=== PATIENT | female | born 1990 | race Caucasian/White ===

== ENCOUNTER 2017-08-05 16:53 | Emergency (ER) | payer OTHER ==
[~2017-08-05] VITALS: Ht 162.6 cm; Wt 70.3 kg
[2017-08-05 18:51] LABS: Influenza A Positive (NEGATIVE); Influenza B Negative (NEGATIVE)
[2017-08-05] MEDS ORDERED: Tamiflu75 MG PO (19:01)
== END 2017-08-05 19:06 | disposition home or self-care (01) ==
LOC: ER 16:53
PROVIDERS: Physician Assistant
DX: J10.1 Influenza due to other identified influenza virus with other respiratory manifestations (principal)
CPT/HCPCS: 87081; 87430; 87804; 99283

== ENCOUNTER 2017-09-18 10:09 | Emergency (ER) | payer OTHER ==
[~2017-09-18] VITALS: Ht 162.6 cm; Wt 70.3 kg
[~2017-09-18 10:09] MED LIST: Tamiflu75 MG PO
[2017-09-18] MEDS ORDERED: Veetids 500500 MG PO (10:54)
== END 2017-09-18 11:03 | disposition home or self-care (01) ==
LOC: ER 10:09
DX: J02.0 Streptococcal pharyngitis (principal); Z87.891 Personal history of nicotine dependence
CPT/HCPCS: 87430; 99283; J1100

== ENCOUNTER → 2017-12-05 | Outpatient (CLI) | payer OTHER ==
[~2017-12-05] MED LIST changes: +Veetids 500500 MG PO
[2017-12-05 15:39] LABS: Source, Urine Clean Catch
[2017-12-05 18:03] LABS: BASOPHILS ABSOLUTE AUTO 0.02 K/mm3 (0.00-0.23); BASOPHILS PERCENT AUTO 0 % (0-2); EOSINOPHILS ABSOLUTE AUTO 0.12 K/mm3 (0.00-0.68); EOSINOPHILS PERCENT AUTO 2 % (0-6); Hematocrit 39.9 % (33.0-51.0); Hemoglobin 13.6 g/dL (11.5-16.0); IMMATURE GRAN ABSOLUTE AUTO 0.02 K/mm3 (0.00-0.10); IMMATURE GRAN PERCENT AUTO 0 % (0-1); LYMPHOCYTES PERCENT AUTO 32 % (21-46); MONOCYTES ABSOLUTE AUTO 0.87 K/mm3 (0.16-1.47); MONOCYTES PERCENT AUTO 11 % (4-13); Mean Corpuscular HGB 30.3 pg (26.0-34.0); Mean Corpuscular HGB Conc 34.1 g/dL (31.5-36.5); Mean Corpuscular Volume 89 fL (80-100); Mean Platelet Volume 10.4 fL (9.1-12.4); NEUTROPHILS ABSOLUTE AUTO 4.48 K/mm3 (1.96-9.15); NEUTROPHILS PERCENT AUTO 55 % (41-73); Platelet Count 250 K/mm3 (150-400); RDW Coefficient Variation 12.2 % (11.7-14.2); Red Blood Cell Count 4.49 M/mm3 (3.80-5.20); White Blood Cell Count 8.11 K/mm3 (4.00-11.30)
[2017-12-05 18:08] LABS: Appearance, Urine Clear (Clear); Bilirubin, Urine Neg (Neg); Blood, Urine Neg (Neg); Color, Urine Yellow (P-Yellow); Glucose Qualitative, Urine Neg (Neg); Ketones, Urine 1+ (Neg); Leukocyte Esterase, Urine Neg (Neg); Nitrite, Urine Neg (Neg); Protein, Urine Neg (Neg); Urobilinogen, Urine NORM (Normal)
[2017-12-05 18:47] LABS: U Buprenorphine Screen Not Detected; U Cannabinoids Screen DETECTED; U Oxycodone Screen Not Detected; U Phencyclidine Screen Not Detected; U Propoxyphene Screen Not Detected
[2017-12-05 18:48] LABS: U Amphetamine Screen Not Detected; U Barbituate Screen Not Detected; U Benzodiazapine Screen Not Detected; U Cocaine Screen Not Detected; U Methadone Screen Not Detected; U Methamphetamine Screen Not Detected; U Opiates Screen Not Detected
[2017-12-07 04:09] LABS: HBSAG SCREEN Negative (Negative); HIV SCREEN 4TH GENERATION WRFX Non Reactive (Non Reactive)
== END ==
LOC: LAB 15:25 → LAB SHORT 15:25
PROVIDERS: Obstetrics & Gynecology
DX: Z34.81 Encounter for supervision of other normal pregnancy, first trimester (principal)
CPT/HCPCS: 36415; 80055; 81003; 84443; 87086; 87389

== ENCOUNTER → 2017-12-31 | Outpatient (CLI) | payer OTHER ==
[2018-01-01 14:01] LABS: Candida species (DNA Probe) Negative (NEGATIVE); G. vaginalis (DNA Probe) Negative (NEGATIVE); T. vaginalis (DNA Probe) Negative (NEGATIVE)
[2018-01-03 04:12] LABS: CHLAMYDIA TRACHOMATIS, NAA Negative (Negative); NEISSERIA GONORRHOEAE, NAA Negative (Negative)
== END ==
LOC: LAB 16:05 → LAB SHORT 16:05
PROVIDERS: Obstetrics & Gynecology
DX: Z34.80 Encounter for supervision of other normal pregnancy, unspecified trimester (principal); N76.0 Acute vaginitis
CPT/HCPCS: 87480; 87491; 87510; 87591; 87660; G0123

== ENCOUNTER → 2018-06-25 | Outpatient (CLI) | payer OTHER | END | disposition home or self-care (01) | LOC: LAB 16:01 → LAB SHORT 16:01 | DX: Z34.80 Encounter for supervision of other normal pregnancy, unspecified trimester (principal) | CPT/HCPCS: 87081; 87653 ==

== ENCOUNTER 2018-07-23 06:20 | Inpatient (IN) | payer OTHER ==
[~2018-07-23] VITALS: Ht 162.6 cm; Wt 85.0 kg
[2018-07-23 07:00] LABS: BASOPHILS ABSOLUTE AUTO 0.03 K/mm3 (0.00-0.23); BASOPHILS PERCENT AUTO 0 % (0-2); EOSINOPHILS ABSOLUTE AUTO 0.09 K/mm3 (0.00-0.68); EOSINOPHILS PERCENT AUTO 1 % (0-6); Hemoglobin 12.3 g/dL (11.5-16.0); IMMATURE GRAN ABSOLUTE AUTO 0.06 K/mm3 (0.00-0.10); IMMATURE GRAN PERCENT AUTO 1 % (0-1); LYMPHOCYTES ABSOLUTE AUTO 2.34 K/mm3 (0.84-5.20); LYMPHOCYTES PERCENT AUTO 22 % (21-46); MONOCYTES ABSOLUTE AUTO 0.79 K/mm3 (0.16-1.47); MONOCYTES PERCENT AUTO 8 % (4-13); Mean Corpuscular HGB 30.1 pg (26.0-34.0); Mean Corpuscular HGB Conc 33.2 g/dL (31.5-36.5); Mean Corpuscular Volume 91 fL (80-100); NEUTROPHILS ABSOLUTE AUTO 7.12 K/mm3 (1.96-9.15); NEUTROPHILS PERCENT AUTO 68 % (41-73); Platelet Count 262 K/mm3 (150-400); RDW Coefficient Variation 13.6 % (11.7-14.2); RDW Standard Deviation 44.4 fL (35.1-46.3); Red Blood Cell Count 4.09 M/mm3 (3.80-5.20); White Blood Cell Count 10.43 K/mm3 (4.00-11.30)
--- NOTE | 2018-07-23 14:30 | NUR ---
Assumed care from Sean Brock RN.
[2018-07-24 06:14] LABS: Hematocrit 30.1 % (33.0-51.0); Hemoglobin 9.6 g/dL (11.5-16.0); Mean Corpuscular HGB Conc 31.9 g/dL (31.5-36.5); Mean Platelet Volume 10.1 fL (9.1-12.4); Platelet Count 222 K/mm3 (150-400); RDW Coefficient Variation 13.8 % (11.7-14.2); RDW Standard Deviation 47.8 fL (35.1-46.3); White Blood Cell Count 11.22 K/mm3 (4.00-11.30)
[2018-07-24 06:17] LABS: Mean Corpuscular Volume 94 fL (80-100)
--- NOTE | 2018-07-24 08:45 | NUR ---
MOM LAYING IN BED WITH NB ON CHEST SLEEPING. REPORTS NB FEEDING IS NOT STRONG OTHER CHILDREN, BUT IMPROVING WITH EACH FEED. REASSURED PT THAT THIS IS NORMAL. PLAN TO DC HOME THIS AFTERNOON IF ABLE. LOVING TOWARDS NB.
[2018-07-24] MEDS ORDERED: IBUP800 PO (13:21)
[2018-07-24] MEDS ORDERED: Verotin-Gr Cap1 EACH PO (13:21)
--- NOTE | 2018-07-24 13:45 | NUR ---
BANDS MATCHED, ALL DC TEACHING DONE, ALL QUESTIONS ANSWERED. DC'D HOME WITH NB. MOM VERY GRATEFUL FOR STAFF & CARE.
== END 2018-07-24 13:45 | disposition home or self-care (01) | DRG 807 ==
LOC: OBS 06:20 → BC 06:23 → OBS 06:30 → BC 06:31
PROVIDERS: ADMIT Obstetrics & Gynecology
PROC: 10E0XZZ Delivery of Products of Conception, External Approach (ICD-10-PCS; principal; 2018-07-23)
PROC: 0HQ9XZZ Repair Perineum Skin, External Approach (ICD-10-PCS; 2018-07-23)
PROC: 10907ZC Drainage of Amniotic Fluid, Therapeutic from Products of Conception, Via Natural or Artificial Opening (ICD-10-PCS; 2018-07-23)
DX: O70.0 First degree perineal laceration during delivery (principal); Z37.0 Single live birth; Z3A.40 40 weeks gestation of pregnancy
CPT/HCPCS: 36415; 85025; 85027; J1885; J2210; J2590; J3010; J7120

== ENCOUNTER 2020-08-14 05:50 | Inpatient (IN) | payer OTHER ==
[~2020-08-14] VITALS: Ht 162.6 cm; Wt 88.0 kg
[~2020-08-14 05:50] MED LIST changes: +IBUP800 PO; +Verotin-Gr Cap1 EACH PO
[2020-08-14 06:24] LABS: BASOPHILS ABSOLUTE AUTO 0.04 K/mm3 (0.00-0.23); BASOPHILS PERCENT AUTO 0 % (0-2); EOSINOPHILS ABSOLUTE AUTO 0.08 K/mm3 (0.00-0.68); EOSINOPHILS PERCENT AUTO 1 % (0-6); Hematocrit 39.3 % (33.0-51.0); Hemoglobin 13.3 g/dL (11.5-16.0); IMMATURE GRAN ABSOLUTE AUTO 0.09 K/mm3 (0.00-0.10); IMMATURE GRAN PERCENT AUTO 1 % (0-1); LYMPHOCYTES ABSOLUTE AUTO 2.38 K/mm3 (0.84-5.20); LYMPHOCYTES PERCENT AUTO 25 % (21-46); MONOCYTES ABSOLUTE AUTO 0.74 K/mm3 (0.16-1.47); MONOCYTES PERCENT AUTO 8 % (4-13); Mean Corpuscular HGB 31.3 pg (26.0-34.0); Mean Corpuscular HGB Conc 33.8 g/dL (31.5-36.5); Mean Corpuscular Volume 93 fL (80-100); Mean Platelet Volume 10.7 fL (9.1-12.4); NEUTROPHILS ABSOLUTE AUTO 6.15 K/mm3 (1.96-9.15); NEUTROPHILS PERCENT AUTO 65 % (41-73); Platelet Count 199 K/mm3 (150-400); RDW Coefficient Variation 13.9 % (11.7-14.2); RDW Standard Deviation 47.2 fL (35.1-46.3); Red Blood Cell Count 4.25 M/mm3 (3.80-5.20); White Blood Cell Count 9.48 K/mm3 (4.00-11.30)
[2020-08-14 07:35] LABS: Influenza A, PCR NEGATIVE (NEGATIVE); Influenza B, PCR NEGATIVE (NEGATIVE); Resp Syncytial Virus, PCR NEGATIVE (NEGATIVE); SARS-Cov-2 (COVID-19) PCR, MMC NEGATIVE (NEGATIVE)
[2020-08-14] MEDS ORDERED: ALBU90OI (10:35)
[2020-08-14] MEDS ORDERED: IBUP800 (10:52)
== END 2020-08-15 12:25 | disposition home or self-care (01) | DRG 807 ==
LOC: OBS 05:50 → BC 06:06
PROVIDERS: ADMIT Family Medicine
PROC: 10E0XZZ Delivery of Products of Conception, External Approach (ICD-10-PCS; principal; 2020-08-14)
PROC: 10907ZC Drainage of Amniotic Fluid, Therapeutic from Products of Conception, Via Natural or Artificial Opening (ICD-10-PCS; 2020-08-14)
PROC: 0HQ9XZZ Repair Perineum Skin, External Approach (ICD-10-PCS; 2020-08-14)
DX: O69.81X0 Labor and delivery complicated by cord around neck, without compression, not applicable or unspecified (principal); Z37.0 Single live birth; Z3A.40 40 weeks gestation of pregnancy; O70.0 First degree perineal laceration during delivery; Z20.822 Contact with and (suspected) exposure to COVID-19
CPT/HCPCS: 0241U; 36415; 85025; 86850; 86900; 86901; A9270; J1885; J2210; J2590; J7120

== ENCOUNTER 2021-01-05 03:09 | Observation (INO) | payer OTHER ==
[~2021-01-05] VITALS: Ht 162.6 cm; Wt 72.6 kg
[~2021-01-05 03:09] MED LIST changes: +ALBU90OI; +IBUP800
[2021-01-05 04:01] LABS: Source, Urine Clean Catch
[2021-01-05 04:03] LABS: Bilirubin, Urine Neg (Neg); Blood, Urine Neg (Neg); Glucose Qualitative, Urine Neg (Neg); Ketones, Urine Neg (Neg); Leukocyte Esterase, Urine 1+ (Neg); Nitrite, Urine Neg (Neg); Protein, Urine Neg (Neg); Specific Gravity, Urine 1.015 (1.003-1.022); Urobilinogen, Urine NORM (Normal)
[2021-01-05 04:10] LABS: Appearance, Urine Hazy (Clear); Color, Urine Yellow (P-Yellow)
[2021-01-05 04:11] LABS: Amorphous Mod (0-Heavy); Bacteria Mod /hpf; Red Blood Cells, Urine 0-2 /hpf (0-2); Squamous Epithelial Cells Few /hpf (Few)
[2021-01-05 04:18] LABS: BASOPHILS ABSOLUTE AUTO 0.04 K/mm3 (0.00-0.23); BASOPHILS PERCENT AUTO 1 % (0-2); EOSINOPHILS ABSOLUTE AUTO 0.27 K/mm3 (0.00-0.68); EOSINOPHILS PERCENT AUTO 4 % (0-6); Hematocrit 43.4 % (33.0-51.0); Hemoglobin 14.6 g/dL (11.5-16.0); IMMATURE GRAN ABSOLUTE AUTO 0.01 K/mm3 (0.00-0.10); IMMATURE GRAN PERCENT AUTO 0 % (0-1); LYMPHOCYTES ABSOLUTE AUTO 2.71 K/mm3 (0.84-5.20); LYMPHOCYTES PERCENT AUTO 41 % (21-46); MONOCYTES ABSOLUTE AUTO 0.56 K/mm3 (0.16-1.47); MONOCYTES PERCENT AUTO 8 % (4-13); Mean Corpuscular HGB 30.6 pg (26.0-34.0); Mean Corpuscular HGB Conc 33.6 g/dL (31.5-36.5); Mean Corpuscular Volume 91 fL (80-100); Mean Platelet Volume 10.5 fL (9.1-12.4); NEUTROPHILS ABSOLUTE AUTO 3.04 K/mm3 (1.96-9.15); NEUTROPHILS PERCENT AUTO 46 % (41-73); Platelet Count 234 K/mm3 (150-400); RDW Coefficient Variation 12.1 % (11.7-14.2); RDW Standard Deviation 40.7 fL (35.1-46.3); Red Blood Cell Count 4.77 M/mm3 (3.80-5.20); White Blood Cell Count 6.63 K/mm3 (4.00-11.30)
[2021-01-05 04:48] LABS: Alanine Aminotransfer (ALT/SGP 41 U/L (12-78); Albumin, Blood 4.1 g/dL (3.4-5.0); Albumin/Globulin Ratio 1.1 (0.8-1.8); Alk Phos 88 U/L (50-136); Anion Gap 4 mmol/L (6-16); Aspartate Aminotrans (AST/SGOT 22 U/L (12-37); Bilirubin, Total 0.3 mg/dL (0.1-1.0); Blood Urea Nitrogen 13 mg/dL (8-24); Bun/Creatinine Ratio 19.2 (12.0-20.0); CO2, Blood 30 mmol/L (21-32); Chloride, Blood 105 mmol/L (98-108); Creatinine, Blood 0.68 mg/dL (0.40-1.00); Globulin, Blood 3.6 g/dL (2.2-4.0); Glomerular Filtration Rate >60 (60-); Glucose, Blood 111 mg/dL (70-99); Magnesium, Blood 2.2 mg/dL (1.6-2.4); Potassium, Blood 4.2 mmol/L (3.5-5.5); Sodium, Blood 139 mmol/L (136-145); Total Protein, Blood 7.7 g/dL (6.4-8.2)
[2021-01-05] MEDS ORDERED: ONDA4ODT MM (05:41)
[2021-01-05] MEDS ORDERED: MULVITA PO (08:55)
--- NOTE | 2021-01-05 09:58 | NUR ---
PT TRANSFERED TO [facility] VIA GURNY FROM FLOOR. History, Chart, Medications and Allergies reviewed before start of procedure. Lungs clear T/O to Auscultation. Pre-Op teaching done. Pt verbalizes understanding. Patient confirms NPO status and agrees with scheduled surgery. IV BANDAGE CHANGED DUE TO BEING SOILED.
--- NOTE | 2021-01-05 10:04 | NUR ---
ARRIVED TO ROOM VIA GURNEY, ORIENTED TO ROOM LAYOUT AND CALL SYSTEM, DR. GONZALEZ NOTIFIED, MEDICATED FOR PAIN, PT TAKEN TO DAY SURGERY SHORTLY AFTER.
--- NOTE | 2021-01-05 13:52 | NUR ---
POST OP ARRIVED FROM PACU VIA GURNEY, AWAKE BUT DROWSY, LUNGS CLEAR, HRR, ACTIVE BT'S X4, ABD SOFT AND MILDLY DISTENDED, ABD LAP INCISINS W/ STERISTRIPS C/D/I, DENIES ANY NEED FOR PAIN MEDS AT THIS TIME, ICE CHIPS AND CLEAR LIQUIDS GIVEN, CONT. TO MONITOR VS AND ANY CHANGES, MEDICATE FOR PAIN PRN.
--- NOTE | 2021-01-05 17:41 | NUR ---
SUMMARY VSS, VOIDING WITHOUT DIFFICULTY, REPORTS NAUSEA IS SLIGHTLY BETTER AFTER ZOFRAN GIVEN, PT EATING REGULAR DINNER, AMBULATED IN ROOM, REPORTS PASSING SOME FLATUS, RATES PAIN AT 5/10 AFTER FENTANYL GIVEN FOR PAIN, ABD INCISIONS C/D/I, NO ACUTE CHANGES THIS SHIFT.
--- NOTE | 2021-01-05 22:10 | NUR ---
PT RESTING IN BED, REP PAIN PORTIA AT THIS, DENIES ADDITIONAL NEEDS.
--- NOTE | 2021-01-06 00:53 | NUR ---
PT AWAKE IN ROOM, LOOKING AT PHONE. PT MEDICATED FOR PAIN AT THIS TIME. PT REP PASSING FLATUS X1. PT DENIES ADDITIONAL NEEDS.
--- NOTE | 2021-01-06 05:49 | NUR ---
POD 1 S/P LAP MP. PT VSS T/O NIGHT, INCISIONS CDI. PAIN MGD W/2 PERCOCET AND TORADOL W/REP RELIEF. PT PORTIA PO, DENIED N/V, REP PASSING SM AMT FLATUS, IS VOIDING URING W/O DIFFICULTY. PT UP INDEP IN ROOM, PORTIA WELL, AMB ENC PT PORTIA.
[2021-01-06] MEDS ORDERED: OXYC5 PO (09:44)
--- NOTE | 2021-01-06 10:57 | NUR ---
ENCOURAGED OOB TO AMBULATE, PT STATES SHE WANTS TO REST FOR NOW, MEDICATED FOR PAIN, PLAN DC HOME AFTER LUNCH.
--- NOTE | 2021-01-06 15:37 | NUR ---
DC'D HOME THIS AFTERNOON, DC INSTRUCTIONS GIVEN, VERBALIZED UNDERSTANDING, IV DC'D, CATH INTACT, PT DC'D W/ .
== END 2021-01-06 14:42 | disposition home or self-care (01) ==
LOC: ER 03:09 → SURS 03:10 → ER 06:55 → SURS 06:55
PROVIDERS: Emergency Medicine; ADMIT Surgery
DX: K80.12 Calculus of gallbladder with acute and chronic cholecystitis without obstruction (principal); J45.998 Other asthma; K21.9 Gastro-esophageal reflux disease without esophagitis; Z87.891 Personal history of nicotine dependence
CPT/HCPCS: 76705; 80053; 81001; 81025; 83690; 83735; 84145; 85025; 87086; 88304; 96374; 96375; 99285-25; A9270; G0378; J0690; J1100; J1170; J1885; J2250; J2405; J2704; J3010; J7030; J7120

== ENCOUNTER 2021-12-01 13:28 | Emergency (ER) | payer OTHER ==
[~2021-12-01] VITALS: Ht 162.6 cm; Wt 70.8 kg
[~2021-12-01 13:28] MED LIST changes: +MULVITA PO; +ONDA4ODT MM; +OXYC5 PO
[2021-12-01] MEDS ORDERED: BENZ100A PO (15:06)
[2021-12-01 16:18] LABS: Influenza A, PCR NEGATIVE (NEGATIVE); Influenza B, PCR NEGATIVE (NEGATIVE); Resp Syncytial Virus, PCR NEGATIVE (NEGATIVE); SARS-Cov-2 (COVID-19) PCR, MMC NEGATIVE (NEGATIVE)
== END 2021-12-01 15:19 | disposition home or self-care (01) ==
LOC: ER 13:28
PROVIDERS: Physician Assistant
DX: J40 Bronchitis, not specified as acute or chronic (principal); Z20.822 Contact with and (suspected) exposure to COVID-19
CPT/HCPCS: 0241U; 71046; 93005; 93010; 99283-25

== ENCOUNTER → 2022-07-01 | Outpatient (CLI) | payer OTHER ==
[~2022-07-01] MED LIST changes: +BENZ100A PO
[2022-07-01 11:13] LABS: BASOPHILS ABSOLUTE AUTO 0.03 K/mm3 (0.00-0.23); BASOPHILS PERCENT AUTO 0 % (0-2); EOSINOPHILS PERCENT AUTO 1 % (0-6); IMMATURE GRAN ABSOLUTE AUTO 0.03 K/mm3 (0.00-0.10); IMMATURE GRAN PERCENT AUTO 0 % (0-1); LYMPHOCYTES ABSOLUTE AUTO 2.16 K/mm3 (0.84-5.20); LYMPHOCYTES PERCENT AUTO 23 % (21-46); MONOCYTES ABSOLUTE AUTO 0.64 K/mm3 (0.16-1.47); MONOCYTES PERCENT AUTO 7 % (4-13); Mean Corpuscular HGB 31.1 pg (26.0-34.0); Mean Corpuscular HGB Conc 34.1 g/dL (31.5-36.5); Mean Corpuscular Volume 91 fL (80-100); Mean Platelet Volume 9.4 fL (9.1-12.4); NEUTROPHILS ABSOLUTE AUTO 6.41 K/mm3 (1.96-9.15); NEUTROPHILS PERCENT AUTO 68 % (41-73); Platelet Count 325 K/mm3 (150-400); RDW Coefficient Variation 12.4 % (11.7-14.2); Red Blood Cell Count 4.82 M/mm3 (3.80-5.20); White Blood Cell Count 9.37 K/mm3 (4.00-11.30)
[2022-07-01 11:32] LABS: Albumin, Blood 4.1 g/dL (3.4-5.0); Bilirubin, Total 0.5 mg/dL (0.1-1.0); Bun/Creatinine Ratio 22.7 (12.0-20.0); Calcium, Blood 8.9 mg/dL (8.5-10.1); Creatinine, Blood 0.66 mg/dL (0.40-1.00); Globulin, Blood 4.1 g/dL (2.2-4.0); Potassium, Blood 4.2 mmol/L (3.5-5.5); Thyroid Stimulating Hormone 0.241 uIU/mL (0.360-4.800); Total Protein, Blood 8.2 g/dL (6.4-8.2)
[2022-07-03 08:32] LABS: Free Thyroxine 1.15 ng/dL (0.70-1.60)
== END ==
LOC: LAB 11:08 → LAB SHORT 11:08
PROVIDERS: Family Medicine
DX: R53.83 Other fatigue (principal); R10.9 Unspecified abdominal pain
CPT/HCPCS: 80053; 83690; 84439; 84443; 85025

== ENCOUNTER → 2024-04-15 | Outpatient (CLI) | payer OTHER ==
[2024-04-15 09:26] LABS: BASOPHILS ABSOLUTE AUTO 0.02 K/mm3 (0.00-0.23); BASOPHILS PERCENT AUTO 0 % (0-2); EOSINOPHILS ABSOLUTE AUTO 0.08 K/mm3 (0.00-0.68); EOSINOPHILS PERCENT AUTO 1 % (0-6); Hematocrit 45.4 % (33.0-51.0); Hemoglobin 15.7 g/dL (11.5-16.0); IMMATURE GRAN ABSOLUTE AUTO 0.02 K/mm3 (0.00-0.10); IMMATURE GRAN PERCENT AUTO 0 % (0-1); LYMPHOCYTES ABSOLUTE AUTO 1.97 K/mm3 (0.84-5.20); LYMPHOCYTES PERCENT AUTO 35 % (21-46); MONOCYTES ABSOLUTE AUTO 0.62 K/mm3 (0.16-1.47); MONOCYTES PERCENT AUTO 11 % (4-13); Mean Corpuscular HGB 31.6 pg (26.0-34.0); Mean Corpuscular HGB Conc 34.6 g/dL (31.5-36.5); Mean Corpuscular Volume 91 fL (80-100); Mean Platelet Volume 9.8 fL (9.1-12.4); NEUTROPHILS PERCENT AUTO 52 % (41-73); Platelet Count 250 K/mm3 (150-400); RDW Coefficient Variation 12.4 % (11.7-14.2); RDW Standard Deviation 41.1 fL (35.1-46.3); Red Blood Cell Count 4.97 M/mm3 (3.80-5.20); White Blood Cell Count 5.61 K/mm3 (4.00-11.30)
[2024-04-15 09:46] LABS: Albumin, Blood 4.2 g/dL (3.4-5.0); Albumin/Globulin Ratio 1.2 (0.8-1.8); Bilirubin, Total 1.6 mg/dL (0.1-1.0); Bun/Creatinine Ratio 17.6 (12.0-20.0); Creatinine, Blood 0.74 mg/dL (0.40-1.00); Globulin, Blood 3.4 g/dL (2.2-4.0); Potassium, Blood 3.5 mmol/L (3.5-5.5); Thyroid Stimulating Hormone 0.38 uIU/mL (0.360-4.800); Total Protein, Blood 7.6 g/dL (6.4-8.2)
== END | disposition home or self-care (01) ==
LOC: LAB SHORT 09:21 → LAB 09:21
PROVIDERS: Physician Assistant
DX: R10.13 Epigastric pain (principal); R53.83 Other fatigue
CPT/HCPCS: 80053; 83690; 84443; 85025; 87338

== ENCOUNTER 2024-04-16 12:22 | Emergency (ER) | payer OTHER ==
[~2024-04-16] VITALS: Ht 162.6 cm; Wt 61.7 kg
[2024-04-16 13:41] LABS: BASOPHILS ABSOLUTE AUTO 0.03 K/mm3 (0.00-0.23); BASOPHILS PERCENT AUTO 0 % (0-2); EOSINOPHILS PERCENT AUTO 1 % (0-6); Hematocrit 44.5 % (33.0-51.0); Hemoglobin 15.3 g/dL (11.5-16.0); IMMATURE GRAN ABSOLUTE AUTO 0.04 K/mm3 (0.00-0.10); IMMATURE GRAN PERCENT AUTO 0 % (0-1); LYMPHOCYTES ABSOLUTE AUTO 3.09 K/mm3 (0.84-5.20); LYMPHOCYTES PERCENT AUTO 33 % (21-46); MONOCYTES ABSOLUTE AUTO 0.84 K/mm3 (0.16-1.47); MONOCYTES PERCENT AUTO 9 % (4-13); Mean Corpuscular HGB 31.6 pg (26.0-34.0); Mean Corpuscular HGB Conc 34.4 g/dL (31.5-36.5); Mean Corpuscular Volume 92 fL (80-100); Mean Platelet Volume 10.4 fL (9.1-12.4); NEUTROPHILS ABSOLUTE AUTO 5.41 K/mm3 (1.96-9.15); NEUTROPHILS PERCENT AUTO 57 % (41-73); Platelet Count 287 K/mm3 (150-400); RDW Coefficient Variation 12.4 % (11.7-14.2); RDW Standard Deviation 42.3 fL (35.1-46.3); Red Blood Cell Count 4.84 M/mm3 (3.80-5.20); White Blood Cell Count 9.51 K/mm3 (4.00-11.30)
[2024-04-16 14:05] LABS: Albumin, Blood 4.2 g/dL (3.4-5.0); Albumin/Globulin Ratio 1.2 (0.8-1.8); Bilirubin, Direct 0.2 mg/dL (0.0-0.3); Bilirubin, Indirect 1.1 mg/dL (0.1-0.7); Bilirubin, Total 1.3 mg/dL (0.1-1.0); Bun/Creatinine Ratio 27.3 (12.0-20.0); Calcium, Blood 9.1 mg/dL (8.5-10.1); Creatinine, Blood 0.62 mg/dL (0.40-1.00); Globulin, Blood 3.5 g/dL (2.2-4.0); Potassium, Blood 3.3 mmol/L (3.5-5.5); Total Protein, Blood 7.7 g/dL (6.4-8.2)
[2024-04-16] MEDS ORDERED: Ketorolac Tromethamine 15mg Vial IV ONE (15:20)
[2024-04-16] MEDS ORDERED: Ondansetron HCl 2 MG / ML 2ML Vial IV ONE (15:20)
[2024-04-16] MEDS ORDERED: NS 1,000 ML IV SCH (15:20)
[2024-04-16] MEDS ORDERED: Potassium Chloride 20 MEQ TabCR PO ONE (15:20)
[2024-04-16 17:45] VITALS: BP 120/82
[2024-04-16] MEDS ORDERED: ONDA4ODT MM (18:01)
== END 2024-04-16 18:05 | disposition home or self-care (01) ==
LOC: ER 12:22
PROVIDERS: Physician Assistant
DX: R10.11 Right upper quadrant pain (principal); R63.4 Abnormal weight loss; R19.7 Diarrhea, unspecified; J45.909 Unspecified asthma, uncomplicated
CPT/HCPCS: 74177; 76705; 80048; 80076; 83690; 84703; 85025; 96361; 96374-59; 96375; 99284-25; A9270; J1885; J2405; J7030; Q9967